=== PATIENT | female | born 1995 | race Caucasian/White ===

== ENCOUNTER 2016-09-17 13:58 | Emergency (ER) | payer OTHER | END 2016-09-17 15:48 | disposition home or self-care (01) | LOC: ER1 13:58 | DX: S16.1XXA Strain of muscle, fascia and tendon at neck level, initial encounter (principal); S39.012A Strain of muscle, fascia and tendon of lower back, initial encounter; V49.40XA Driver injured in collision with unspecified motor vehicles in traffic accident, initial encounter; Z33.1 Pregnant state, incidental | CPT/HCPCS: 36415; 81001; 84703; 99284 ==

== ENCOUNTER 2016-09-18 21:44 | Emergency (ER) | payer OTHER ==
[2016-09-19 01:19] LABS: HEMOGLOBIN 11.8 gm/dl (12.3-15.3); RED BLOOD COUNT 3.78 M/UL (4.00-5.10); WHITE BLOOD COUNT 11.6 K/UL (4.5-11.0)
[2016-09-19 01:38] LABS: BUN/CREATININE RATIO 22 (0-10)
== END 2016-09-19 03:00 | disposition home or self-care (01) ==
LOC: ER1 21:44
PROVIDERS: Physician Assistant
DX: O9A.211 Injury, poisoning and certain other consequences of external causes complicating pregnancy, first trimester (principal); S16.1XXA Strain of muscle, fascia and tendon at neck level, initial encounter; S39.012A Strain of muscle, fascia and tendon of lower back, initial encounter; O99.89 Other specified diseases and conditions complicating pregnancy, childbirth and the puerperium; R10.30 Lower abdominal pain, unspecified; V89.2XXA Person injured in unspecified motor-vehicle accident, traffic, initial encounter; Y93.89 Activity, other specified; Y92.410 Unspecified street and highway as the place of occurrence of the external cause; Z3A.01 Less than 8 weeks gestation of pregnancy
CPT/HCPCS: 36415; 72125; 76817; 80053; 81001; 83690; 84702; 85025; 86900; 86901; 87086; 99284